=== PATIENT | female | born 1985 | race Caucasian/White ===

== ENCOUNTER 2019-08-01 07:28 | Inpatient (IN) ==
--- OUTSIDE RECORDS SUMMARY | 2019-08-01 07:35 | External Medical Summary | Continuity of Care Document ---
:1985 Author Name Ricky De Anda Address Unavailable Unavailable , Care Team Providers Name Role Phone Aris De Anda Unavailable [email or web address] PCP, NO Unavailable Unavailable Unavailable Unavailable Unavailable Problems Counseling for initiation of control method (V25.02) ( Z30.09) Encounter for routine gynecological exam ination with Papanicolaou smear of cervix (V72.31) (Z01.419) Allergies and Adverse Reactions No Known Drug Allergies (Allergy) Medications Vitamins TABS Refills: 0 Azithromycin 250 MG Oral Tablet; TAKE 2 TABLETS ON DAY 1 THEN TAKE 1 TABLET A DAY FOR 4 DAYS. Adilson Ospina Start: 27-May-2012 Quantity: 1 6 EA Disp Pack Refills: 0 Ortho Evra 150-35 MCG/24HR PTWK; APPLY O NE PATCH WEEKLY FOR 3 WEEKS THEN OFF 1 WEEK Adilson Ospina Start: 19-Jun-2012 Quantity: 1 3 EA Box Refills: 12 Procedures Counseling for initiation of control method History of Need for prophylactic immunotherapy Status: Completed History of Supervision of normal Status: Completed Immunizations Immunizations not documented Family History Grandfather Family history of Diabetes Mellitus (V18.0) Status: Active Unknown Family Member Family history of Breast Cancer (V16.3) Status: Active Comments: Family History Plan of Treatment Planned Observations Planned Goals not documented Results No Known Results Results not documented Encounters Appointment; Morris Hurst M.D. 03-Feb-2015 10:00 Encounter Diagnosis: Problem not documented
[2019-08-01] MEDS ORDERED: OXYTOCIN 30 UNITS/500 ML BAG IV PRN ×2 (08:47→22:51)
--- NOTE | 2019-08-01 08:55 | History & Physical Report ---
Date of Service August 01, 2019 Assessment & Plan (1) Post term over 40 weeks: Patient is a 34 yo at 40.4 wks, scheduled IOL VSS Afebrile No medical problems GBS negative FHR reassuring Cervix not favorable Plan to admit, labs, Cervidil for cervical ripening History of Present Illness Chief Complaint: Induction Primary Care Provider: NO PCP Patient is a 34 yo at 40.4 wks, scheduled IOL for postdates No complaints Irregular ctxs, not very painful No LOF/VB +FM No HART/ Change in vision/ N&V/ CP/SOB/ Fever/ chills Her has been uncomplicated Denies medical problems GBS negative Allergies Allergy/AdvReac Type Severity Reaction Status Date / Time No Known Allergies Allergy Verified 05/15/12 14:28 Home Medications Home Medications Medication Instructions Recorded Confirmed Type 95-iron [id number] 1 pkg PO DAILY 08/01/19 08/01/19 History [ + DHA] Patient History Social History Preferred Language: Swedish Communication Ability: Effective Typesetting Supervisor Required: No Beliefs That Will Affect Care: None marital status: Current Living Situation: Spouse and Family Current Living Situation Comment: and daughters Smoking Status: Never smoker Hx Alcohol Use: No Hx Substance Use: No OB History 2 FT , 9 and 11 yo [employer] History No h/o STD's, no HSV Review of Systems All systems reviewed & are unremarkable except as noted in HPI & below Physical Exam Constitutional: WD/WN, vitals as above well developed and well nourished NAD Gastrointestinal (Abdomen): Abd: soft, NT, Gravid Genitourinary: no vaginal lesions, no adnexal mass normal external appearance Cervix: 1cm/ 30#/ -3, posterior Results & Data Vital Signs (Past 12 Hours) Vital Signs Temp Pulse Resp BP 08/01/19 07:59 37 C 18 08/01/19 07:40 92 H 130/67 Monitoring External Monitor 130's, REACTIVE Tocodynamometer Iregular ctxs
[2019-08-01] MEDS ORDERED: DINOPROSTONE 10 MG INSERT PV STA (09:00)
[2019-08-01 09:03] LABS: Hematocrit (blood only) 38.3 % (37-47); Hemoglobin 12.9 g/dL (12.0-16.0); Mean Corpuscular Hemoglobin 30.3 pg (25-34); Mean Corpuscular Volume 89.9 fL (80-100); Platelet Count 195 K/uL (130-400); RDW Coefficient of Variation 13.7 % (11.5-14.5); RDW Standard Deviation 44.7 fL (36.4-46.3); Red Blood Count 4.26 M/uL (4.2-5.4); White Blood Count 8.22 K/uL (4.8-10.8)
[2019-08-01 09:04] LABS: Mean Corpuscular Hgb Conc 33.7 g/dL (32-36)
--- NOTE | 2019-08-01 09:40 | Labor Progress Brief Note ---
Date of Service August 01, 2019 Pt doing well FHR; CAT1 Indcution for postdates Cervidil #1 placed VE; Unchanged Results & Data Vital Signs (Past 12 Hours) Vital Signs Temp Pulse Resp BP 08/01/19 07:59 37 C 18 08/01/19 07:40 92 H 130/67
--- NOTE | 2019-08-01 17:27 | Obstetrical Progress Note ---
Date of Service August 01, 2019 Subjective Patient is revalauated She has been walking on hallway No complaints Irregular ctxs q 15 min, not painful No LOF/VB +FM FHR categ I Continue with cervical ripening Results & Data Vital Signs (Past 12 Hours) Vital Signs Temp Pulse Resp BP 08/01/19 15:55 36.9 C 18 08/01/19 15:54 88 141/76 H 08/01/19 14:17 18 08/01/19 11:38 36.9 C 80 18 122/70 08/01/19 08:20 16 08/01/19 07:59 37 C 08/01/19 07:40 92 H 130/67
[2019-08-01] MEDS ORDERED: BUTORPHANOL TARTRATE 1 MG/ML VIAL IV ONE (22:50)
--- NOTE | 2019-08-01 22:55 | Obstetrical Progress Note ---
Date of Service August 01, 2019 Subjective Patient is reevaluated She feels more painful and regular ctxs Pain is 7 /10, desires IV pain med Cervidil was removed and she ate dinner VSS Afebrile VE; 2/ 60%/ -3, posterior FHR categ I [place]: ctxs q 3-4 min Plan to augment with low dose pitocin Stadol for pain All questions were answered Results & Data Vital Signs (Past 12 Hours) Vital Signs Temp Pulse Resp BP 08/01/19 18:57 18 08/01/19 18:56 83 127/70 08/01/19 15:55 36.9 C 18 08/01/19 15:54 88 141/76 H 08/01/19 14:17 18 08/01/19 11:38 36.9 C 80 18 122/70
[2019-08-01] MEDS: LACTATED RINGER'S 1,000 ML IV PRN (23:19)
[2019-08-02] MEDS ORDERED: fentaNYL citrate 100 MCG/2 ML VIAL ONE (02:08)
[2019-08-02] MEDS ORDERED: BUPIVACAINE 0.25% 30 ML VIAL ONE (02:08)
[2019-08-02] MEDS ORDERED: ePHEDrine sulfate 50 MG/ML AMP ONE (02:08)
[2019-08-02] MEDS ORDERED: fentaNYL 2MCG/ML ROPIV 1.25MG/ML 100 ML BAG EPI ONE (02:09)
[2019-08-02] MEDS ORDERED: NALOXONE HCL 1 MG in SODIUM CHLORIDE 0.9% 1000ML 1,000 ML IV PRN (02:34)
[2019-08-02] MEDS ORDERED: fentaNYL 2MCG/ML ROPIV 1.25MG/ML 100 ML BAG EPI PRN (02:34)
[2019-08-02] MEDS ORDERED: ePHEDrine sulfate 50 MG/ML AMP IV PRN (02:34)
[2019-08-02] MEDS ORDERED: NALOXONE HCL 0.4 MG/1 ML VIAL/CARP IV PRN (02:34)
[2019-08-02] MEDS ORDERED: ONDANSETRON INJ 2 MG/ML 2 ML VIAL IV PRN (02:34)
[2019-08-02] MEDS ORDERED: DiphenhydrAMINE HCL 50 MG/ML VIAL IV PRN (02:34)
[2019-08-02] MEDS ORDERED: NALBUPHINE HCL INJ 10 MG/ML AMP IV PRN (02:34)
--- NOTE | 2019-08-02 02:36 | Anesthesiology Consultation ---
Date of Service August 02, 2019 Assessment & Plan Chart Review Chart Review: Patient NOT seen in Pre Admission Testing and Acceptable Risk for Labor Epidural Consults Requested none ASA ASA2 Proposed Anesthesia Anesthesia Type: Labor Epidural and CSE Risk / Benefits Reviewed With: PT / POA / Parent / Guardian, Accepts Plan and Informed Consent Obtained History Height/Weight Height: 5 ft 6 in Weight: 86.092 kg Allergies Allergy/AdvReac Type Severity Reaction Status Date / Time No Known Allergies Allergy Verified 05/15/12 14:28 Medications Home Medications Medication Instructions Recorded Confirmed Last Taken 95-iron [id number] 1 pkg PO DAILY 08/01/19 08/01/19 08/01/19 07:00 [ + DHA] Active Medications Generic Name Dose Route Start Last Admin Trade Name Freq PRN Reason Stop Dose Admin Lactated Ringer's 1,000 mls @ 150 mls/hr 08/01/19 08:47 08/01/19 23:19 Lr IV 08/03/19 08:46 150 mls/hr .Q6H40M PRN Administration L&D Protocol Protocol Oxytocin 30 units in 500 mls @ 10 mls/hr 08/01/19 22:51 08/02/19 01:47 Pitocin IV 08/03/19 22:50 0.6 units/hr .Q24H PRN 10 mls/hr Labor Induction/Augmentation Titration Protocol 0.6 UNITS/HR NPO Date Last Intake of Fluids: 08/02/19 Time Last Intake of Fluids: 01:00 Date Last Intake of Solids: 08/01/19 Time Last Intake of Solids: 22:00 Exercise / Class Metabolic Activity II 4-5 Yardwork/Stairs/Walk up hill Past Anesthesia History No Hx of Anesthesia Complications and No Family Hx of Anesthesia Complications History of PONV No Hx of PONV and No Hx of Motion Sickness Social History Smoking Status: Never smoker Hx Alcohol Use: No Hx Substance Use: No Review of Systems no chest pain or sob Physical Exam Vital Signs Last Vital Signs Temp 36.9 C 08/01/19 23:04 Pulse 96 H 08/02/19 02:34 Resp 18 08/02/19 02:30 BP 130/76 08/02/19 02:20 Pulse Ox 98 08/02/19 02:34 ENMT Mouth: no TMJ abnormality Thyromental Distance: > or= 3.5 Finger Breadths Mallampati Class: II Neck normal visual inspection Respiratory normal respiratory effort Auscultation: lungs clear to auscultation bilaterally Cardiovascular Rate/Rhythm: regular rate and regular rhythm Musculoskeletal Spine: normal cervical ROM Neurologic moves all extremities Psychiatric Orientation: alert and oriented x 3 Testing Laboratory Results 08/01/19 08:54
[2019-08-02] MEDS: LACTATED RINGER'S 1,000 ML IV PRN ×2 (02:37→09:01)
[2019-08-02] MEDS ORDERED: METHYLERGONOVINE MALEATE 0.2 MG/ML AMP ONE (11:24)
[2019-08-02] MEDS ORDERED: miSOPROStoL 200 MCG TAB ONE (11:27)
--- NOTE | 2019-08-02 13:00 | Anesthesia Procedure Note ---
Date of Service August 02, 2019 Anesthesia Post Epidural Note Vital Signs Vital Signs: Temp Pulse Resp BP Pulse Ox 37.2 C 87 20 134/68 83 L 08/02/19 08:42 08/02/19 12:53 08/02/19 08:42 08/02/19 12:53 08/02/19 11:25 Notes Mental Status: alert / awake / arousable and participated in evaluation Patient Amnestic to Procedure: Yes Nausea / Vomiting: adequately controlled Pain: adequately controlled Airway Patency, RR, SpO2: stable & adequate BP & HR: stable & adequate Hydration State: stable & adequate Neuraxial Anesthesia: was administered and sensory block is resolving Anesthetic Complications: no major complications apparent and Pt Satisfied with anesthetic care Epidural: Removed without complications and With tip intact
[2019-08-02] MEDS ORDERED: OXYTOCIN 30 UNITS/500 ML BAG IV PRN (13:10)
[2019-08-02] MEDS ORDERED: bisacodyL 10 MG SUPP PR PRN (13:10)
[2019-08-02] MEDS ORDERED: miSOPROStoL 200 MCG TAB PR ONE (13:10)
[2019-08-02] MEDS ORDERED: DIPHTHERIA/TETANUS/PERTUSSIS 0.5 ML SYR/VIAL IM ONE (13:10)
[2019-08-02] MEDS ORDERED: BENZOCAINE 20% AER SPR 82.5 GM CAN EXT PRN (13:10)
[2019-08-02] MEDS ORDERED: SUPERCREAM 0.870% 15 GM JAR EXT PRN (13:10)
[2019-08-02] MEDS ORDERED: HYDROCORTISONE ACETATE 25 MG SUPP PR PRN (13:10)
[2019-08-02] MEDS ORDERED: METHYLERGONOVINE MALEATE 0.2 MG/ML AMP IM ONE (13:10)
--- NOTE | 2019-08-02 13:17 | Progress Note ---
Date of Service August 02, 2019 Subjective Called to evaluate pt with Rt vulva hematoma PE; rt vulva slightly erythematous. Mild lochia stable vitals will apply ice 'expectant management for now Results & Data Vital Signs (Past 12 Hours) Vital Signs Temp Pulse Resp BP Pulse Ox 08/02/19 13:08 96 H 140/80 08/02/19 12:53 87 134/68 08/02/19 12:39 75 124/64 08/02/19 12:24 71 128/60 08/02/19 12:08 75 121/74 08/02/19 11:54 77 119/57 L 08/02/19 11:38 89 132/62 08/02/19 11:25 96 H 83 L 08/02/19 11:24 93 H 133/64 08/02/19 11:19 113 H 100 08/02/19 11:14 103 H 94 08/02/19 11:10 99 H 143/80 H 08/02/19 11:09 109 H 76 L 08/02/19 11:04 109 H 98 08/02/19 10:59 100 H 97 08/02/19 10:54 97 H 136/79 98 08/02/19 10:49 90 98 08/02/19 10:44 76 96 08/02/19 10:40 74 123/59 L 08/02/19 10:39 78 96 08/02/19 10:34 81 97 08/02/19 10:29 79 96 08/02/19 10:25 84 125/59 L 08/02/19 10:24 93 H 96 08/02/19 10:19 98 H 96 08/02/19 10:14 79 96 08/02/19 10:09 73 124/61 95 08/02/19 10:04 74 96 08/02/19 09:59 93 H 96 08/02/19 09:54 77 130/69 96 08/02/19 09:49 75 96 08/02/19 09:44 79 96 08/02/19 09:39 82 97 08/02/19 09:38 81 130/66 08/02/19 09:34 85 97 08/02/19 09:29 80 97 08/02/19 09:24 84 125/64 97 08/02/19 09:19 89 97 09/28/19 09:14 85 96 08/02/19 09:09 76 96 08/02/19 09:08 77 115/57 L 08/02/19 09:04 81 96 08/02/19 08:59 82 96 08/02/19 08:54 73 110/55 L 95 08/02/19 08:49 76 96 08/02/19 08:44 87 96 08/02/19 08:42 37.2 C 20 08/02/19 08:39 85 120/70 96 08/02/19 08:34 80 96 08/02/19 08:29 82 97 08/02/19 08:25 78 115/56 L 08/02/19 08:24 78 96 08/02/19 08:19 80 96 08/02/19 08:14 86 96 08/02/19 08:09 82 96 08/02/19 08:08 80 114/57 L 08/02/19 08:04 82 97 08/02/19 07:59 84 96 08/02/19 07:54 84 115/59 L 97 08/02/19 07:49 84 96 08/02/19 07:44 76 96 08/02/19 07:39 73 109/56 L 96 08/02/19 07:34 75 96 08/02/19 07:29 77 97 08/02/19 07:24 82 97 08/02/19 07:23 86 116/59 L 08/02/19 07:19 89 97 08/02/19 07:14 96 H 97 08/02/19 07:09 100 H 97 08/02/19 07:08 37.1 C 85 20 115/55 L 08/02/19 07:04 98 H 97 08/02/19 07:00 20 08/02/19 06:59 82 97 08/02/19 06:56 84 117/59 L 08/02/19 06:54 91 H 97 08/02/19 06:49 77 97 08/02/19 06:44 92 H 96 08/02/19 06:39 84 104/59 L 97 08/02/19 06:34 73 96 08/02/19 06:30 18 08/02/19 06:29 88 96 08/02/19 06:25 82 111/65 08/02/19 06:24 83 96 09/28/19 06:19 94 H 97 08/02/19 06:14 77 95 08/02/19 06:09 72 114/61 96 08/02/19 06:04 84 96 08/02/19 06:00 16 08/02/19 05:59 76 96 08/02/19 05:54 82 105/56 L 96 08/02/19 05:49 74 96 08/02/19 05:44 78 96 08/02/19 05:39 75 97 08/02/19 05:38 82 118/66 08/02/19 05:34 79 96 08/02/19 05:30 16 08/02/19 05:29 75 96 08/02/19 05:24 82 113/65 96 08/02/19 05:19 84 97 08/02/19 05:14 83 96 08/02/19 05:10 89 121/77 08/02/19 05:09 90 96 08/02/19 05:04 85 99 08/02/19 05:00 20 08/02/19 04:59 90 98 08/02/19 04:54 85 115/57 L 98 08/02/19 04:49 74 97 08/02/19 04:44 76 97 08/02/19 04:39 91 H 104/58 L 97 08/02/19 04:34 81 97 08/02/19 04:30 16 08/02/19 04:29 85 96 08/02/19 04:24 95 H 98 08/02/19 04:23 80 106/56 L 08/02/19 04:19 72 96 08/02/19 04:14 68 96 08/02/19 04:09 67 103/51 L 97 08/02/19 04:04 87 97 08/02/19 04:00 16 08/02/19 03:59 86 97 08/02/19 03:54 76 106/54 L 97 08/02/19 03:49 76 96 08/02/19 03:45 18 08/02/19 03:44 98 H 97 08/02/19 03:40 87 111/58 L 08/02/19 03:39 83 97 08/02/19 03:34 69 97 08/02/19 03:30 16 08/02/19 03:29 73 96 08/02/19 03:24 86 97 08/02/19 03:23 77 110/58 L 08/02/19 03:19 77 114/54 L 96 08/02/19 03:14 96 H 98 08/02/19 03:12 94 H 106/57 L 08/02/19 03:10 36.7 C 18 08/02/19 03:09 94 H 112/59 L 99 08/02/19 03:04 86 97 08/02/19 03:01 88 126/61 08/02/19 03:00 92 H 18 126/57 L 08/02/19 02:59 90 95 08/02/19 02:57 83 115/57 L 08/02/19 02:55 91 H 123/60 08/02/19 02:54 86 97 08/02/19 02:53 90 119/57 L 08/02/19 02:49 89 97 08/02/19 02:44 104 H 98 08/02/19 02:39 99 H 99 08/02/19 02:34 96 H 98 08/02/19 02:30 18 08/02/19 02:20 88 130/76 08/02/19 02:00 18 08/02/19 01:30 16 08/02/19 01:17 85 112/66
--- NOTE | 2019-08-02 13:41 | Progress Note ---
Date of Service August 02, 2019 Subjective Pt seen as f/u pressure persist Bladder drained - 1000cc clear Urine obtained pain is improved expectant management for now Results & Data Vital Signs (Past 12 Hours) Vital Signs Temp Pulse Resp BP Pulse Ox 08/02/19 13:24 96 H 134/78 08/02/19 13:08 96 H 140/80 08/02/19 12:53 87 134/68 08/02/19 12:39 75 124/64 08/02/19 12:24 71 128/60 08/02/19 12:08 75 121/74 08/02/19 11:54 77 119/57 L 08/02/19 11:38 89 132/62 08/02/19 11:25 96 H 83 L 08/02/19 11:24 93 H 133/64 08/02/19 11:19 113 H 100 08/02/19 11:14 103 H 94 08/02/19 11:10 99 H 143/80 H 08/02/19 11:09 109 H 76 L 08/02/19 11:04 109 H 98 08/02/19 10:59 100 H 97 08/02/19 10:54 97 H 136/79 98 08/02/19 10:49 90 98 08/02/19 10:44 76 96 08/02/19 10:40 74 123/59 L 08/02/19 10:39 78 96 08/02/19 10:34 81 97 08/02/19 10:29 79 96 08/02/19 10:25 84 125/59 L 08/02/19 10:24 93 H 96 08/02/19 10:19 98 H 96 08/02/19 10:14 79 96 08/02/19 10:09 73 124/61 95 08/02/19 10:04 74 96 08/02/19 09:59 93 H 96 08/02/19 09:54 77 130/69 96 08/02/19 09:49 75 96 08/02/19 09:44 79 96 08/02/19 09:39 82 97 08/02/19 09:38 81 130/66 08/02/19 09:34 85 97 08/02/19 09:29 80 97 08/02/19 09:24 84 125/64 97 08/02/19 09:19 89 97 08/02/19 09:14 85 96 08/02/19 09:09 76 96 08/02/19 09:08 77 115/57 L 08/02/19 09:04 81 96 08/02/19 08:59 82 96 08/02/19 08:54 73 110/55 L 95 08/02/19 08:49 76 96 08/02/19 08:44 87 96 08/02/19 08:42 37.2 C 20 08/02/19 08:39 85 120/70 96 08/02/19 08:34 80 96 08/02/19 08:29 82 97 08/02/19 08:25 78 115/56 L 08/02/19 08:24 78 96 08/02/19 08:19 80 96 08/02/19 08:14 86 96 08/02/19 08:09 82 96 08/02/19 08:08 80 114/57 L 08/02/19 08:04 82 97 08/02/19 07:59 84 96 08/02/19 07:54 84 115/59 L 97 08/02/19 07:49 84 96 08/02/19 07:44 76 96 08/02/19 07:39 73 109/56 L 96 08/02/19 07:34 75 96 08/02/19 07:29 77 97 08/02/19 07:24 82 97 08/02/19 07:23 86 116/59 L 08/02/19 07:19 89 97 08/02/19 07:14 96 H 97 08/02/19 07:09 100 H 97 08/02/19 07:08 37.1 C 85 20 115/55 L 08/02/19 07:04 98 H 97 08/02/19 07:00 20 08/02/19 06:59 82 97 08/02/19 06:56 84 117/59 L 08/02/19 06:54 91 H 97 08/02/19 06:49 77 97 08/02/19 06:44 92 H 96 08/02/19 06:39 84 104/59 L 97 08/02/19 06:34 73 96 08/02/19 06:30 18 08/02/19 06:29 88 96 08/02/19 06:25 82 111/65 08/02/19 06:24 83 96 08/02/19 06:19 94 H 97 08/02/19 06:14 77 95 08/02/19 06:09 72 114/61 96 08/02/19 06:04 84 96 08/02/19 06:00 16 08/02/19 05:59 76 96 08/02/19 05:54 82 105/56 L 96 08/02/19 05:49 74 96 08/02/19 05:44 78 96 08/02/19 05:39 75 97 08/02/19 05:38 82 118/66 08/02/19 05:34 79 96 08/02/19 05:30 16 08/02/19 05:29 75 96 08/02/19 05:24 82 113/65 96 08/02/19 05:19 84 97 08/02/19 05:14 83 96 08/02/19 05:10 89 121/77 08/02/19 05:09 90 96 08/02/19 05:04 85 99 08/02/19 05:00 20 08/02/19 04:59 90 98 08/02/19 04:54 85 115/57 L 98 08/02/19 04:49 74 97 08/02/19 04:44 76 97 08/02/19 04:39 91 H 104/58 L 97 08/02/19 04:34 81 97 08/02/19 04:30 16 08/02/19 04:29 85 96 08/02/19 04:24 95 H 98 08/02/19 04:23 80 106/56 L 08/02/19 04:19 72 96 08/02/19 04:14 68 96 08/02/19 04:09 67 103/51 L 97 08/02/19 04:04 87 97 08/02/19 04:00 16 08/02/19 03:59 86 97 08/02/19 03:54 76 106/54 L 97 08/02/19 03:49 76 96 08/02/19 03:45 18 08/02/19 03:44 98 H 97 08/02/19 03:40 87 111/58 L 08/02/19 03:39 83 97 08/02/19 03:34 69 97 08/02/19 03:30 16 08/02/19 03:29 73 96 08/02/19 03:24 86 97 08/02/19 03:23 77 110/58 L 08/02/19 03:19 77 114/54 L 96 08/02/19 03:14 96 H 98 08/02/19 03:12 94 H 106/57 L 08/02/19 03:10 36.7 C 18 08/02/19 03:09 94 H 112/59 L 99 08/02/19 03:04 86 97 08/02/19 03:01 88 126/61 08/02/19 03:00 92 H 18 126/57 L 08/02/19 02:59 90 95 08/02/19 02:57 83 115/57 L 08/02/19 02:55 91 H 123/60 08/02/19 02:54 86 97 08/02/19 02:53 90 119/57 L 08/02/19 02:49 89 97 08/02/19 02:44 104 H 98 08/02/19 02:39 99 H 99 08/02/19 02:34 96 H 98 08/02/19 02:30 18 08/02/19 02:20 88 130/76 08/02/19 02:00 18
[2019-08-02] MEDS: ACETAMINOPHEN 325 MG TAB PO PRN (16:01)
[2019-08-02] MEDS: IBUPROFEN 600 MG TAB PO PRN (19:55)
[2019-08-02] MEDS: DOCUSATE SODIUM 100 MG CAP PO SCH (21:16)
[2019-08-03] MEDS: IBUPROFEN 600 MG TAB PO PRN ×2 (03:28→07:31)
[2019-08-03] MEDS: ACETAMINOPHEN 325 MG TAB PO PRN (03:29)
[2019-08-03 06:27] LABS: Hematocrit (blood only) 35.6 % (37-47); Hemoglobin 11.7 g/dL (12.0-16.0); Mean Corpuscular Hgb Conc 32.9 g/dL (32-36); Mean Corpuscular Volume 91.3 fL (80-100); Mean Platelet Volume 9.7 fL (7.4-10.4); Platelet Count 181 K/uL (130-400); RDW Coefficient of Variation 13.8 % (11.5-14.5); RDW Standard Deviation 45.5 fL (36.4-46.3); White Blood Count 9.57 K/uL (4.8-10.8)
[2019-08-03] MEDS: DOCUSATE SODIUM 100 MG CAP PO SCH (07:32)
[2019-08-03] MEDS ORDERED: PRENATAL VITAMIN 1 TAB PO SCH (08:00)
--- NOTE | 2019-08-03 10:49 | Obstetrical Progress Note ---
Date of Service August 03, 2019 Assessment & Plan (1) Post term over 40 weeks: PPD #1 pt doing well no complaints d/c home with instructions Subjective Ambulation: ambulating normally Voiding: no voiding problems Passing Gas:: Yes Diet Tolerance:: regular diet Lochia:: Small Feeding Type:: breast feeding Review of Systems All systems reviewed & are unremarkable except as noted in HPI & below Physical Exam Constitutional WD/WN, vitals as above well developed and well nourished Eyes PERRL, conjunctivae normal, anicteric sclerae Neck trachea midline, no thyromegaly Respiratory normal respiratory effort, lungs clear to auscultation Auscultation: no crackles, no rales and no wheezes Cardiovascular RRR, no murmur, no edema Gastrointestinal (Abdomen) normal bowel sounds, soft, nontender, no hepatosplenomegaly Uterus is below umbilicus Musculoskeletal no cyanosis or clubbing, extremities motor strength 5/5 Skin no rashes, warm and dry Neurologic patellar DTR's 2+ bilat, sensation intact Psychiatric A+Ox3, euthymic affect Genitourinary normal external appearance Results & Data Vital Signs (Past 12 Hours) Vital Signs Temp Pulse Resp BP Pulse Ox 08/03/19 07:40 36.3 C L 79 18 119/79 98 08/03/19 04:00 36.9 C 70 18 121/72 08/02/19 23:30 36.8 C 72 18 126/70
[2019-08-03] MEDS ORDERED: bisacodyL 5 MG TABEC PO SCH (20:00)
--- NOTE | 2019-08-04 07:59 | Delivery Summary ---
DATE OF OPERATION: 08/02/2019 The patient delivered a live infant female in left occiput anterior presentation. There was a tight nuchal cord, which was reduced. Infant was delivered and placed on mother's abdomen. Cord was clamped and cut after 1 minute. 's Apgars is 9 and 9. Cord blood was obtained. Placenta was spontaneously delivered. Inspection of the placenta shows a normal grossly looking placenta with 3-vessel cord. Inspection of the perineum showed a second-degree midline laceration, which was repaired in layers with 2-0 Vicryl. Rectal exam post repair shows good sphincter tone. No sutures are palpated in the rectum. All instruments were removed from the vagina including sponges, needles and retractors and accounted for x2. Baby and mother are doing well in recovery. I attest to the content of the Intraoperative Record and any orders documented therein. Any exception s are noted below.
== END 2019-08-03 12:38 | disposition home or self-care (01) | DRG 807 ==
LOC: 4S1 07:28 → 4S2 08-02 15:56